=== PATIENT | female | born 1970 | race Caucasian/White ===

== ENCOUNTER → 2016-04-04 | Outpatient (CLI) | payer SELFPAY ==
[~2016-04-04] MED LIST: DOCU-144 PO; HYDR-905 PO; PANT40TA4 PO; ULT50 PO
--- NOTE | 2016-04-04 16:45 | RADRPT ---
PROCEDURE: XR Left Knee. CLINICAL INDICATION: Left knee pain. TECHNIQUE: Two views. Frontal and lateral. COMPARISON: 03/14/2016. FINDINGS: As seen previously, there is a transverse fracture of the patella with tubercle pins and a figure-of -eight wire. There is mild step off at the articular surface level measuring 0.2 cm and there is di straction of the fracture fragments anteriorly measuring 1.0 cm. There is no other fracture and the re is no dislocation. The articular surfaces are otherwise intact. There is no lytic or blastic lesion. IMPRESSION: 1. Unchanged postoperative appearance of the left patella. 2. No other new abnormality. RPTAT: QQ .Nestor Davis MD, MD Date Time Electronically viewed and signed by .Nestor Davis MD, on 04/04/2016 16:44 .R/
== END | disposition home or self-care (01) ==
LOC: HKI 15:20
PROVIDERS: ATTEND Orthopaedic Surgery
DX: S82.032D Displaced transverse fracture of left patella, subsequent encounter for closed fracture with routine healing (principal); W01.0XXD Fall on same level from slipping, tripping and stumbling without subsequent striking against object, subsequent encounter; M25.562 Pain in left knee; Z88.3 Allergy status to other anti-infective agents
CPT/HCPCS: 73560; G0463

== ENCOUNTER → 2016-04-18 | Outpatient (CLI) | payer BC ==
[~2016-04-18] MED LIST changes: +TRAM50TA2 PO; -ULT50 PO
--- NOTE | 2016-04-18 17:54 | RADRPT ---
PROCEDURE: XR Left Knee. CLINICAL INDICATION: Left knee pain. TECHNIQUE: Two views. Frontal and lateral. COMPARISON: 04/04/2016. FINDINGS: There has been open reduction and internal fixation of a transverse fracture of the patella with cor tical wire is and a goaepw-gd-wofwl wire. There is mild step off at the articular surface measuring 0.2 cm and there is distraction of the fracture fragments anteriorly measuring 1.0 cm, unchanged. There is no other fracture and there is no dislocation. The articular surfaces are otherwise intact. There is no lytic or blastic lesion. IMPRESSION: 1. No change from 04/04/2016. RPTAT: QQ .Nestor Davis MD, MD Date Time Electronically viewed and signed by .Nestor Davis MD, on 04/18/2016 17:54 .R/
== END | disposition home or self-care (01) ==
LOC: HKI 15:28
PROVIDERS: ATTEND Orthopaedic Surgery
DX: S82.032D Displaced transverse fracture of left patella, subsequent encounter for closed fracture with routine healing (principal); W01.0XXD Fall on same level from slipping, tripping and stumbling without subsequent striking against object, subsequent encounter; M25.562 Pain in left knee
CPT/HCPCS: 73560; G0463

== ENCOUNTER → 2016-05-02 | Outpatient (CLI) | payer BC ==
--- NOTE | 2016-05-03 15:53 | RADRPT ---
PROCEDURE: XR Knee. CLINICAL INDICATION: Left knee pain TECHNIQUE: Two views of the left knee are available for review. COMPARISON: 04/18/2016 FINDINGS: The patient is again noted to be status post patellar ORIF. No acute fracture or dislocation is see n. Bony mineralization is normal. No radiopaque foreign body is identified. Alignment is anatomic . IMPRESSION: 1. Stable appearance of left patella ORIF. 2. No acute fracture or dislocation is seen. RPTAT: QQ .Mingo Rodriguez MD, MD Date Time Electronically viewed and signed by .Mingo Rodriguez MD, MD on 05/03/2016 15:52 .R/
== END | disposition home or self-care (01) ==
LOC: HKI 13:59
PROVIDERS: ATTEND Orthopaedic Surgery
DX: S82.032D Displaced transverse fracture of left patella, subsequent encounter for closed fracture with routine healing (principal); W01.0XXD Fall on same level from slipping, tripping and stumbling without subsequent striking against object, subsequent encounter; M25.562 Pain in left knee
CPT/HCPCS: 73560; G0463

== ENCOUNTER → 2016-05-20 | Outpatient (CLI) | payer BC ==
--- NOTE | 2016-05-20 10:35 | RADRPT ---
PROCEDURE: XR left knee. CLINICAL INDICATION: Knee pain TECHNIQUE: AP and lateral weightbearing views are available for review. COMPARISON: 05/02/2016 FINDINGS: No change in ORIF of transverse patellar fracture with 2 vertical pins and [id number] banding The osseous structures are otherwise normal in mineralization, architecture and alignment. No osseo us lesions are identified. The joints are unremarkable. The soft tissues are unremarkable. IMPRESSION: No change in ORIF of transverse patellar fracture with 2 vertical pins and [id number] banding RPTAT: HGDB .Rober Owens MD, MD Date Time Electronically viewed and signed by .Rober Owens MD, on 05/20/2016 10:34 .B/
== END | disposition home or self-care (01) ==
LOC: HKI 09:59
PROVIDERS: ATTEND Orthopaedic Surgery
DX: S82.032D Displaced transverse fracture of left patella, subsequent encounter for closed fracture with routine healing (principal); W01.0XXD Fall on same level from slipping, tripping and stumbling without subsequent striking against object, subsequent encounter

== ENCOUNTER → 2016-06-27 | Outpatient (CLI) | payer BC ==
--- NOTE | 2016-06-27 15:18 | RADRPT ---
PROCEDURE: XR Left Knee. CLINICAL INDICATION: Left knee pain. Postop. TECHNIQUE: Two views. Frontal and lateral. COMPARISON: 05/20/2016. FINDINGS: There has been open reduction and internal fixation of the patella with tubercle pins and a figure-o f-eight wire as seen previously. There is step-off of the articular surface of the patella measurin g 3 mm, unchanged. Alignment is otherwise satisfactory. There is a joint effusion. The soft tissues are otherwise normal. The articular surfaces are otherwise intact. There is no lytic or blastic lesion. There is no radiopaque foreign body. IMPRESSION: 1. Postoperative appearance of the patella, unchanged from 05/20/2016. 2. No other new abnormality. RPTAT: QQ .Nestor Davis MD, MD Date Time Electronically viewed and signed by .Nestor Davis MD, MD on 06/27/2016 15:18 .R/
== END | disposition home or self-care (01) ==
LOC: HKI 13:17
PROVIDERS: ATTEND Orthopaedic Surgery
DX: Z51.89 Encounter for other specified aftercare (principal); S82.032D Displaced transverse fracture of left patella, subsequent encounter for closed fracture with routine healing
CPT/HCPCS: G0463

== ENCOUNTER → 2016-08-08 | Outpatient (CLI) | payer BC ==
--- NOTE | 2016-08-08 14:08 | RADRPT ---
PROCEDURE: XR Left Knee. CLINICAL INDICATION: Left knee pain. TECHNIQUE: Two views. Frontal and lateral. COMPARISON: 06/27/2016. 05/20/2016. FINDINGS: There has been open reduction and internal fixation of the patella with vertical pins and a figure-o f-eight wire as seen previously. There is step-off of the articular surface of the patella measuring 3 mm, unchanged. Alignment is otherwise satisfactory. There is no joint effusion. The soft tissues are normal. The articular surfaces are otherwise intact. There is no lytic or blastic lesion. IMPRESSION: 1. Postoperative appearance of the patella, unchanged from 05/20/2016. 2. No other new abnormality. RPTAT: QQ .Nestor Davis MD, MD Date Time Electronically viewed and signed by .Nestor Davis MD, on 08/08/2016 14:07 .R/
== END | disposition home or self-care (01) ==
LOC: HKI 13:28
PROVIDERS: ATTEND Orthopaedic Surgery
DX: S82.032D Displaced transverse fracture of left patella, subsequent encounter for closed fracture with routine healing (principal); Z87.81 Personal history of (healed) traumatic fracture
CPT/HCPCS: G0463

== ENCOUNTER → 2016-11-07 | Outpatient (CLI) | payer BC ==
--- NOTE | 2016-11-07 19:29 | RADRPT ---
PROCEDURE: CR Left Knee CLINICAL INDICATION: Pain TECHNIQUE: An AP and lateral view were submitted. COMPARISON: 08/08/2016 FINDINGS: Osseous Structures: There is been stable positioning alignment and evidence of progress in the heali ng of the internally fixed left patellar fracture fragments with a 2 mm step off at the posterior ar ticular surface. The remaining osseous elements appear intact. Joint Spaces: The joint spaces are well maintained. A trace joint effusion is evident.. Soft Tissues: The soft tissues appear unremarkable. IMPRESSION: 1. Stable positioning alignment and evidence of progress in the healing of the internally fixed lef t patellar fracture fragments with a 2 mm step off at the posterior surface. 2. There is again a small joint effusion. Physician Shabnam Date Time Electronically viewed and signed by Leana Smyth Physician on 11/07/2016 19:28 /
== END | disposition home or self-care (01) ==
LOC: HKI 08:39
PROVIDERS: ATTEND Orthopaedic Surgery
DX: M25.562 Pain in left knee (principal); S82.032D Displaced transverse fracture of left patella, subsequent encounter for closed fracture with routine healing
CPT/HCPCS: 73560; G0463